=== PATIENT | male | born 1940 | race Caucasian/White ===

== ENCOUNTER → 2017-08-07 | Outpatient (CLI) | payer MEDICARE ==
--- NOTE | 2017-08-07 17:36 | Diagnostic Imaging Report ---
EXAM: Renal Ultrasound INDICATION: \[id number] \S\[id number] \S\ABNORMAL LABS / HTN / HYPERLIPIDEMA COMPARISON: None TECHNIQUE: Transverse and longitudinal images of the kidneys and bladder were obtained. FINDINGS: Right Kidney: Size: 9.6 cm Echogenicity: Normal Parenchymal thickness: Normal Collecting system: No hydronephrosis Stones: None Cyst/Mass: None Left Kidney: Size: 10.2 cm Echogenicity: Normal Parenchymal thickness: Normal Collecting system: No hydronephrosis Stones: None Cyst/Mass: None Bladder: Unremarkable. Prostate measures 3.7 x 4.1 x 4.6 cm (37.2 cc), enlarged. IMPRESSION: Normal renal ultrasound exam. Enlarged prostate gland. Signed by: Dr. Shemar Jean-Baptiste MD on 08/07/2017 5:33 PM
== END ==
LOC: US 14:18
DX: R89.9 Unspecified abnormal finding in specimens from other organs, systems and tissues (principal); I10 Essential (primary) hypertension; E78.5 Hyperlipidemia, unspecified
CPT/HCPCS: 76770